=== PATIENT | male | born 1995 | race Caucasian/White ===

== ENCOUNTER 2024-01-07 23:43 | Emergency (ER) | payer MEDICAID ==
[~2024-01-07] VITALS: Ht 180.3 cm; Wt 107.0 kg
[2024-01-07 23:49] VITALS: PULSE 110; RESP 16
[2024-01-08 00:02] VITALS: BP 121/87; TEMP 98.6; O2SAT 97
== END 2024-01-08 03:04 | disposition home or self-care (01) ==
LOC: ER 01-08 00:04
DX: R07.89 Other chest pain (principal)
CPT/HCPCS: 71045; 93005; 99283